=== PATIENT | female | born 1960 | race Caucasian/White ===

== ENCOUNTER → 2016-10-21 | Outpatient (REF) ==
[~2016-10-21] MED LIST: ANTIVERT 25MG25 MG PO; NO HOME MEDICATIONS
== END ==
LOC: ZLAB.WCH 11:29
DX: Z01.89 Encounter for other specified special examinations (principal)

== ENCOUNTER 2022-05-29 10:49 | Inpatient (IN) | payer OTHER ==
[~2022-05-29] VITALS: Ht 162.6 cm; Wt 71.1 kg
[2022-06-10] VITALS (9 sets, daily range): BP systolic 116–136; BP diastolic 65–81; PULSE 56–94; TEMP 64–98.8
--- NOTE | 2022-06-10 09:40 | NUR ---
The patient ambulated back to [facility] independently using a steady gait and appeared to tolerate the activity well. Vital signs obtained. Consent signed. 18G IV started in left forearm with one stick, LR Infusing without difficulty. Heart Reg. Lungs clear. Bowel sounds audible. Call light is within reach. brought back to be at her bedside. Warm blanket provided. Denies any further needs.
--- NOTE | 2022-06-10 20:20 | NUR ---
Patient alert and oriented, with IV to Right Wrist infusing well, was able to walk down the the hallway with and the staff, refused tylenol at this time and wants motrin at 2300, with raygoza draining clear yellow urine, no further needs for the patient at this time, will continue to monitor.
[2022-06-11 00:55] VITALS: BP 121/57; PULSE 64; TEMP 98.3
[2022-06-11 04:05] VITALS: BP 107/50; PULSE 59; TEMP 98.2
--- NOTE | 2022-06-11 06:32 | NUR ---
Patient slept well overnight, still with raygoza draining clear yellow urine, pain is controlled with the scheduled motrin, refused tylenol.
[2022-06-11 07:21] LABS: CALCIUM 8.9 mg/dL (8.4-10.2); CREATININE, serum 0.94 mg/dL (0.57-1.11); POTASSIUM 4.2 mmol/L (3.5-4.5)
[2022-06-11 07:23] LABS: BASO % 0.1 % (0.0-2.0); GRAN # 12.8 K/mm3 (1.4-6.5); GRAN % 84.3 % (42.2-75.2); HEMATOCRIT 38.8 % (37.0-47.0); LYMPH # 1.4 K/mm3 (1.2-3.4); LYMPH % 9.3 % (20.0-51.0); MEAN CELL VOLUME 90 fl (80.0-100.0); MEAN CORPUSCULAR HEMOGLOBIN 30 pg (27-31); MEAN CORPUSCULAR HGB CONC 34 g/dl (33.0-37.0); MEAN PLATELET VOLUME 9.6 fl (7.4-10.4); MONO # 0.9 K/mm3 (0.1-0.6); MONO % 5.9 % (1.7-9.3); PLATELET COUNT 292 K/mm3 (130-400); RED BLOOD COUNT 4.32 M/mm3 (4.10-5.30); REDCELL DISTRIBUTION WIDTH-CV 12.7 % (11.5-14.5)
[2022-06-11 08:00] VITALS: BP 108/63; PULSE 81; TEMP 99
--- NOTE | 2022-06-11 08:45 | NUR ---
Pt. sitting up in bed. Pt. is A&OX3, assessment complete. INT to lt. hand patent. Pt. reports pain at a 4 on pain scale. Pt. given Tylenol per orders. Raygoza catheter to DD, clear yellow urine noted. Orders to go home with raygoza. Abd. incisions CDI. Pt. denies further needs, call light within reach.
--- NOTE | 2022-06-11 10:11 | NUR ---
Initial visit; Patient doing well and was receptive to Utilization Review Rn offering prayer and God's blessings. Utilization Review Rn will keep [place] in her prayers.
[2022-06-11 11:40] VITALS: BP 107/59; PULSE 67; TEMP 97.8; TEMP 98.9
--- NOTE | 2022-06-11 15:18 | NUR ---
corrections caseworker met with patient to complete intake and discuss discharge plan. Patient reports that she lives at home in [facility] with her Santi ([phone]). Patient reports to being fully independent with her ADL's and does not utilize any DME to assist with ambulation. She has no home oxygen needs. PCP is Dr. James but also see Arlette Gonzales APRN and utilizes [facility] for prescriptions. Patient reports that she does not have a DPOA-HC established and declines offer to establish one. Patient is planning on returning home once medically ready. Discharge plan: Home
[2022-06-11 16:00] VITALS: BP 98/54; PULSE 73; TEMP 98.5
[2022-06-11 19:27] VITALS: BP 116/61; PULSE 66; TEMP 98.1
--- NOTE | 2022-06-11 20:15 | NUR ---
Patient has been walking down the hallway, INT to left hand, still with raygoza catheter draining clear yellow urine, with 1 midline incision and 4 lap sites clean dry and intact, pain is controlled with tylenol and motrin, will continue to monitor.
[2022-06-12] VITALS (7 sets, daily range): BP systolic 102–123; BP diastolic 58–68; PULSE 62–70; TEMP 97.1–99.1
--- NOTE | 2022-06-12 06:35 | NUR ---
Patient slept most of the night, denies the need for prn pain medicine, still with raygoza catheter draining clear yellow urine, will continue to monitor.
--- NOTE | 2022-06-12 08:02 | NUR ---
PT AWAKE AND ALERT/ORIENTEDX4 AT TIME OF ASSESSMENT. ABD WOUND DRESSINGS CDI. CALL LIGHT WITHIN REACH. [place] WITH NO URINE TO DRAIN AT THIS TIME
[2022-06-12] MEDS ORDERED: LEVAQUIN 5500 MG/TA1 PO (12:05)
[2022-06-12] MEDS ORDERED: ROXICODONE 55 MG/TAB PO (12:06)
--- NOTE | 2022-06-12 22:36 | NUR ---
Patient has been walking down the hallway, had a BM three times tonight, remains on raygoza catheter draining well. At 2200 patient called and reported her left knee has on and off throbbing pain, this nurse checked and theres no redness or inflammation, offered ice pack but refused, will continue to monitor.
--- NOTE | 2022-06-13 00:30 | NUR ---
Patient just got to the bathroom and had a bm, reported her left knee is better, rated her pain as 3/10, SCD's on, will continue to monitor.
[2022-06-13 04:03] VITALS: BP 105/59; PULSE 68; TEMP 97.4
--- NOTE | 2022-06-13 07:29 | NUR ---
PT AWAKE AND IN BED UPON ASSESSMENT. BOWEL SOUNDS HYPERACTIVE IN ALL QUADRANTS AND PT STATES MULTIPLE SMALL LOOSE BMS LAST NIGHT. GAS BUBBLES HEARD IN UPPER GI TRACT WELL, INCLUDING EPIGASTRIC AND SUBSTERNAL. SCDS IN PLACE.
[2022-06-13 07:31] VITALS: BP 115/74; PULSE 62; TEMP 98.1
== END 2022-06-13 13:47 | disposition home or self-care (01) | DRG 982 ==
LOC: INPTSU 06-10 08:49 → SURG 06-10 11:00
PROVIDERS: ADMIT Surgery
PROC: 8E0W4CZ Robotic Assisted Procedure of Trunk Region, Percutaneous Endoscopic Approach (ICD-10-PCS; 2022-06-10)
PROC: 0DTN4ZZ Resection of Sigmoid Colon, Percutaneous Endoscopic Approach (ICD-10-PCS; principal; 2022-06-10 11:00)
DX: N32.1 Vesicointestinal fistula (principal); K57.92 Diverticulitis of intestine, part unspecified, without perforation or abscess without bleeding; R39.89 Other symptoms and signs involving the genitourinary system
CPT/HCPCS: A4314; A9284; J0690; J1100; J1170; J1650; J2250; J2405; J2550; J2704; J3010; J7120